=== PATIENT | female | born 1950 | race Caucasian/White ===

== ENCOUNTER 2022-12-03 08:14 | Inpatient (IN) | payer BC, MEDICARE ==
[~2022-12-03] VITALS: Ht 154.9 cm; Wt 73.0 kg
[2022-12-03 09:37] LABS: Basophils # (auto) 0.1 10 ^3/uL (0-0.2); Basophils % (auto) 0.7 % (0.0-2.0); Eosinophils # (auto) 0 10 ^3/uL (0-0.8); Hematocrit 35.9 % (36.0-46.0); Hemoglobin 12.5 g/dL (12.2-16.2); Lymphocytes # (auto) 1.2 10 ^3/uL (0.4-5.4); Lymphocytes % (auto) 10.1 % (10.0-50.0); Mean Corpuscular Hemoglobin 32.9 pg (28.0-32.0); Monocytes # (auto) 0.4 10 ^3/uL (0-1.3); Monocytes % (auto) 3.6 % (0.0-12.0); Neutrophils % (auto) 85.6 % (37.0-80.0); Nucleated Red Blood Cells % 0.2 %; Red Blood Cells 3.82 10^6/uL (4.0-5.20); Red Cell Distribution Width 13.7 % (11.8-14.3); White Blood Cell 11.7 10^3/uL (4.4-10.8)
[2022-12-03 09:38] LABS: Albumin 4.7 g/dL (3.4-5.0); Calcium 9.9 mg/dL (8.5-10.1); Potassium 4.5 mmol/L (3.5-5.1)
[2022-12-03 09:43] LABS: BUN/Creatinine Ratio 21.3; Bilirubin, Total 0.4 mg/dL (0.2-1.0); Total Protein 8.2 g/dL (6.4-8.2)
[2022-12-03] MEDS ORDERED: ONDANSETRON HCL 4 MG/2 ML VIAL IV ONE (11:45)
[2022-12-03] MEDS ORDERED: MORPHINE SULFATE 4 MG/ML SYR/VIAL IV ONE (11:45)
[2022-12-03] MEDS ORDERED: IOHEXOL 350 MG/ML 100ML IJ ONE (12:11)
[2022-12-03] MEDS ORDERED: PANTOPRAZOLE 40 MG/10 ML VIAL INJ IV ONE (13:15)
[2022-12-03] MEDS ORDERED: cefTRIAXone 1GM/50ML D5W 50 ML IV ONE (13:15)
[2022-12-03] MEDS ORDERED: ACETAMINOPHEN 325 MG TAB PO PRN (13:15)
[2022-12-03 13:38] LABS: Cholesterol 295 mg/dL (< 200); Triglycerides 212 mg/dL (< 150)
[2022-12-03 13:41] LABS: HDL Cholesterol 43 mg/dL (40-59); LDL Cholesterol 208 mg/dL (< 100)
[2022-12-03] MEDS: SODIUM CHLORIDE 0.9% 1,000 ML IV SCH (13:45)
[2022-12-03] MEDS: HYDROcodone-ACET 5/325MG TAB PO PRN (14:41)
[2022-12-03 15:53] LABS: Urine Bacteria FEW /hpf (None Seen); Urine Blood 1+ /uL (Negative); Urine Mucus FEW (None Seen); Urine WBC 3 /hpf (0 - 5)
[2022-12-03 15:54] LABS: Urine Specific Gravity > 1.050 (1.001-1.035)
[2022-12-03] MEDS ORDERED: hydrALAZINE HCL 20 MG/ML VL IV PRN (16:15)
[2022-12-03] MEDS ORDERED: HYDROmorphone HCL 2 MG/ML VL/or syr IV PRN (20:30)
[2022-12-03] MEDS ORDERED: HEPARIN SODIUM (PORCINE) 5000 UNITS/ML 1ML VIAL SC SCH (22:00)
[2022-12-03] MEDS ORDERED: MAGNESIUM SULFATE 1GM/100ML 100 ML IV ONE (22:00)
[2022-12-03] MEDS ORDERED: HEPARIN DRIP/D5W 100UNITS/ML 250 ML IV SCH (23:30)
[2022-12-03] MEDS ORDERED: ASPirin 325 MG TAB PO ONE (23:30)
[2022-12-03] MEDS ORDERED: HEPARIN SODIUM (PORCINE) 5000 UNITS/ML 1ML VIAL IV ONE (23:30)
[2022-12-04] VITALS (10 sets, daily range): BP systolic 116–152; BP diastolic 45–81
[2022-12-04 00:13] LABS: INR 0.99 (0.9-1.15); Partial Thromboplastin Time 25.9 sec (24.6-33.4)
[2022-12-04] MEDS: HYDROcodone-ACET 5/325MG TAB PO PRN ×4 (04:02→19:51)
[2022-12-04 05:23] LABS: Basophils # (auto) 0.1 10 ^3/uL (0-0.2); Basophils % (auto) 0.8 % (0.0-2.0); Eosinophils # (auto) 0 10 ^3/uL (0-0.8); Eosinophils % (auto) 0.3 % (0.0-7.0); Hematocrit 30.4 % (36.0-46.0); Hemoglobin 10.4 g/dL (12.2-16.2); Lymphocytes # (auto) 1.6 10 ^3/uL (0.4-5.4); Lymphocytes % (auto) 19.4 % (10.0-50.0); Mean Corpuscular Hgb Conc. 34.1 g/dL (32.0-36.0); Mean Corpuscular Volume 96.9 fL (80.0-100.0); Monocytes # (auto) 0.7 10 ^3/uL (0-1.3); Monocytes % (auto) 8.2 % (0.0-12.0); Neutrophils # (auto) 5.7 10 ^3/uL (1.6-8.6); Neutrophils % (auto) 71.3 % (37.0-80.0); Red Blood Cells 3.14 10^6/uL (4.0-5.20); Red Cell Distribution Width 13.8 % (11.8-14.3)
[2022-12-04 05:42] LABS: Albumin 3.6 g/dL (3.4-5.0); Calcium 8.6 mg/dL (8.5-10.1); Potassium 3.8 mmol/L (3.5-5.1)
[2022-12-04 05:46] LABS: BUN/Creatinine Ratio 19.1; Bilirubin, Total 0.5 mg/dL (0.2-1.0); INR 1.03 (0.9-1.15)
[2022-12-04 05:49] LABS: Partial Thromboplastin Time 87.7 sec (24.6-33.4)
[2022-12-04] MEDS: SODIUM CHLORIDE 0.9% 1,000 ML IV SCH (07:52)
[2022-12-04] MEDS ORDERED: cefTRIAXone 1GM/50ML D5W 50 ML IV SCH (09:00)
[2022-12-04] MEDS ORDERED: PANTOPRAZOLE 40 MG/10 ML VIAL INJ IV SCH (10:00)
[2022-12-04] MEDS: METOPROLOL SUCCINATE XL 50 MG TAB PO SCH (10:28)
[2022-12-04] MEDS: CLOPIDOGREL BISULFATE 75 MG TAB PO SCH (10:28)
[2022-12-04] MEDS: ASPirin 81 mg TAB PO SCH (10:28)
[2022-12-04 13:55] LABS: INR 1.03 (0.9-1.15); Partial Thromboplastin Time 57.3 sec (24.6-33.4)
[2022-12-04] MEDS ORDERED: HEPARIN SODIUM (PORCINE) 5000 UNITS/ML 1ML VIAL ONE (16:31)
[2022-12-04] MEDS ORDERED: ANGIOMAX 250 MG VIAL IV ONE (16:31)
[2022-12-04] MEDS ORDERED: LIDOCAINE 2%HCL (LOCAL ANESTH.) INJ 20ML MDV ONE (16:32)
[2022-12-04] MEDS ORDERED: fentaNYL CITRATE 100 MCG/2 ML VL ONE (16:32)
[2022-12-04] MEDS ORDERED: SODIUM CHL 0.9% 0 ML ONE (16:32)
[2022-12-04] MEDS ORDERED: MIDAZOLAM HCL 2MG/2ML 2ml VIAL (1mg/ml) ONE (16:32)
[2022-12-04] MEDS ORDERED: VERAPAMIL 2.5MG/ML INJ 2ML VIAL IV ONE (16:32)
[2022-12-04] MEDS ORDERED: LISI-716 PO (19:49)
[2022-12-04 20:20] LABS: INR 1.01 (0.9-1.15); Partial Thromboplastin Time 51.8 sec (24.6-33.4)
[2022-12-04] MEDS ORDERED: HEPARIN DRIP/D5W 100UNITS/ML 250 ML IV SCH (21:00)
[2022-12-04] MEDS: ATORVASTATIN 20 MG TAB PO SCH (21:34)
[2022-12-05] MEDS: HYDROcodone-ACET 5/325MG TAB PO PRN ×4 (01:06→21:44)
[2022-12-05 03:12] LABS: INR 0.98 (0.9-1.15); Partial Thromboplastin Time 47.8 sec (24.6-33.4)
[2022-12-05 05:00] VITALS: BP 137/65
[2022-12-05 06:48] LABS: Basophils # (auto) 0.1 10 ^3/uL (0-0.2); Eosinophils # (auto) 0.1 10 ^3/uL (0-0.8); Eosinophils % (auto) 0.9 % (0.0-7.0); Hematocrit 29.1 % (36.0-46.0); Hemoglobin 10.3 g/dL (12.2-16.2); Lymphocytes # (auto) 1.8 10 ^3/uL (0.4-5.4); Lymphocytes % (auto) 23.7 % (10.0-50.0); Mean Corpuscular Hemoglobin 33.9 pg (28.0-32.0); Mean Corpuscular Hgb Conc. 35.4 g/dL (32.0-36.0); Mean Corpuscular Volume 95.7 fL (80.0-100.0); Monocytes # (auto) 0.7 10 ^3/uL (0-1.3); Monocytes % (auto) 8.8 % (0.0-12.0); Neutrophils # (auto) 4.9 10 ^3/uL (1.6-8.6); Neutrophils % (auto) 65.6 % (37.0-80.0); Nucleated Red Blood Cells % 0.1 %; Red Blood Cells 3.04 10^6/uL (4.0-5.20); Red Cell Distribution Width 13.3 % (11.8-14.3); White Blood Cell 7.4 10^3/uL (4.4-10.8)
[2022-12-05 07:28] LABS: Potassium 4.1 mmol/L (3.5-5.1)
[2022-12-05 07:36] LABS: Albumin 3.6 g/dL (3.4-5.0); BUN/Creatinine Ratio 19.6; Bilirubin, Total 0.4 mg/dL (0.2-1.0); Total Protein 6.5 g/dL (6.4-8.2)
[2022-12-05 09:00] VITALS: BP 117/49
[2022-12-05] MEDS ORDERED: NITROGLYCERIN 0.4 MG SL TAB SL PRN (09:00)
[2022-12-05] MEDS ORDERED: MORPHINE SULFATE INJ 2 MG/ml SYRG IV PRN (09:00)
[2022-12-05] MEDS: ASPirin 81 mg TAB PO SCH (09:35)
[2022-12-05] MEDS: METOPROLOL SUCCINATE XL 50 MG TAB PO SCH (09:37)
[2022-12-05 09:42] LABS: Partial Thromboplastin Time 53.5 sec (24.6-33.4)
[2022-12-05] MEDS: CLOPIDOGREL BISULFATE 75 MG TAB PO SCH (10:00)
[2022-12-05 13:00] VITALS: BP_SYST 132; BP_SYST 143; BP_DIAS 61
[2022-12-05 16:01] LABS: INR 0.99 (0.9-1.15); Partial Thromboplastin Time 45.5 sec (24.6-33.4)
[2022-12-05 17:00] VITALS: BP 153/62
[2022-12-05] MEDS ORDERED: HEPARIN DRIP/D5W 100UNITS/ML 250 ML IV SCH (17:30)
[2022-12-05] MEDS: ATORVASTATIN 20 MG TAB PO SCH (21:42)
[2022-12-05 22:00] VITALS: BP 160/75
[2022-12-06 00:38] LABS: INR 1.03 (0.9-1.15); Partial Thromboplastin Time 68.1 sec (24.6-33.4)
[2022-12-06 05:00] VITALS: BP 163/75
[2022-12-06 06:06] LABS: Basophils # (auto) 0.1 10 ^3/uL (0-0.2); Basophils % (auto) 0.6 % (0.0-2.0); Eosinophils # (auto) 0.1 10 ^3/uL (0-0.8); Eosinophils % (auto) 1.7 % (0.0-7.0); Hematocrit 28.6 % (36.0-46.0); Hemoglobin 10.3 g/dL (12.2-16.2); Lymphocytes % (auto) 25.6 % (10.0-50.0); Mean Corpuscular Hemoglobin 33.5 pg (28.0-32.0); Mean Corpuscular Hgb Conc. 35.8 g/dL (32.0-36.0); Mean Corpuscular Volume 93.5 fL (80.0-100.0); Monocytes # (auto) 0.6 10 ^3/uL (0-1.3); Monocytes % (auto) 7.9 % (0.0-12.0); Neutrophils # (auto) 5.1 10 ^3/uL (1.6-8.6); Neutrophils % (auto) 64.2 % (37.0-80.0); Red Blood Cells 3.06 10^6/uL (4.0-5.20); Red Cell Distribution Width 13.7 % (11.8-14.3); White Blood Cell 7.9 10^3/uL (4.4-10.8)
[2022-12-06 06:28] LABS: Albumin 3.4 g/dL (3.4-5.0); Calcium 8.8 mg/dL (8.5-10.1); Potassium 3.5 mmol/L (3.5-5.1)
[2022-12-06 06:30] LABS: BUN/Creatinine Ratio 21.4; Bilirubin, Total 0.4 mg/dL (0.2-1.0)
[2022-12-06 07:02] LABS: INR 1.02 (0.9-1.15); Partial Thromboplastin Time 61.8 sec (24.6-33.4)
[2022-12-06] MEDS: CLOPIDOGREL BISULFATE 75 MG TAB PO SCH (08:17)
[2022-12-06] MEDS: ASPirin 81 mg TAB PO SCH (08:17)
[2022-12-06] MEDS: METOPROLOL SUCCINATE XL 50 MG TAB PO SCH ×2 (08:18→10:30)
[2022-12-06] MEDS: HYDROcodone-ACET 5/325MG TAB PO PRN (08:18)
[2022-12-06 09:05] VITALS: BP 166/70
[2022-12-06] MEDS ORDERED: LOSARTAN POTASSIUM 25 MG TAB PO ONE (10:30)
[2022-12-06] MEDS ORDERED: SENNA 8.6 MG TAB PO PRN (10:30)
[2022-12-06] MEDS ORDERED: POLYETHYLENE GLYCOL 17 GM PWDR PO PRN (10:30)
[2022-12-06] MEDS ORDERED: ENOXAPARIN SOD 80 MG/0.8ML SYRINGE SC ONE (11:30)
[2022-12-06 13:00] VITALS: BP 138/47
[2022-12-06] MEDS: HYDROmorphone HCL 2 MG TAB PO PRN ×2 (15:45→22:01)
[2022-12-06 17:00] VITALS: BP 119/68
[2022-12-06] MEDS: ACETAMINOPHEN 500 MG TAB PO SCH ×2 (19:45→22:00)
[2022-12-06 20:00] VITALS: BP 163/90
[2022-12-06] MEDS: SENNA 8.6 MG TAB PO SCH (21:53)
[2022-12-06] MEDS: ATORVASTATIN 20 MG TAB PO SCH (21:53)
[2022-12-06] MEDS: ENOXAPARIN SOD 80 MG/0.8ML SYRINGE SC SCH (21:54)
[2022-12-06 22:00] VITALS: BP 163/90
[2022-12-07] VITALS (7 sets, daily range): BP systolic 127–147; BP diastolic 38–58
[2022-12-07] MEDS: HYDROmorphone HCL 2 MG TAB PO PRN ×4 (03:47→19:58)
[2022-12-07] MEDS: ACETAMINOPHEN 500 MG TAB PO SCH ×3 (06:00→21:51)
[2022-12-07 06:26] LABS: Basophils # (auto) 0.1 10 ^3/uL (0-0.2); Basophils % (auto) 0.5 % (0.0-2.0); Eosinophils # (auto) 0.1 10 ^3/uL (0-0.8); Eosinophils % (auto) 0.7 % (0.0-7.0); Hematocrit 27.6 % (36.0-46.0); Hemoglobin 9.8 g/dL (12.2-16.2); Lymphocytes # (auto) 1.8 10 ^3/uL (0.4-5.4); Mean Corpuscular Hemoglobin 33.4 pg (28.0-32.0); Mean Corpuscular Hgb Conc. 35.5 g/dL (32.0-36.0); Monocytes # (auto) 0.8 10 ^3/uL (0-1.3); Monocytes % (auto) 8.1 % (0.0-12.0); Neutrophils # (auto) 7.7 10 ^3/uL (1.6-8.6); Neutrophils % (auto) 73.7 % (37.0-80.0); Red Blood Cells 2.94 10^6/uL (4.0-5.20); Red Cell Distribution Width 13.6 % (11.8-14.3); White Blood Cell 10.4 10^3/uL (4.4-10.8)
[2022-12-07 07:23] LABS: Potassium 3.5 mmol/L (3.5-5.1)
[2022-12-07 07:39] LABS: Albumin 3.3 g/dL (3.4-5.0); Bilirubin, Total 0.6 mg/dL (0.2-1.0); Calcium 9.1 mg/dL (8.5-10.1); Total Protein 6.9 g/dL (6.4-8.2)
[2022-12-07] MEDS: LOSARTAN POTASSIUM 25 MG TAB PO SCH (10:21)
[2022-12-07] MEDS: METOPROLOL SUCCINATE XL 50 MG TAB PO SCH ×2 (10:21→11:44)
[2022-12-07] MEDS: ENOXAPARIN SOD 80 MG/0.8ML SYRINGE SC SCH ×2 (10:22→21:51)
[2022-12-07] MEDS: POLYETHYLENE GLYCOL 17 GM PWDR PO SCH (10:22)
[2022-12-07] MEDS: ASPirin 81 mg TAB PO SCH (10:22)
[2022-12-07] MEDS ORDERED: METOPROLOL TARTRATE 50 MG TAB PO ONE (10:45)
[2022-12-07] MEDS ORDERED: NITROGLYCERIN 0.4MG/DOSE SPRAY 4.9GM TL PRN (10:45)
[2022-12-07] MEDS ORDERED: CHOLECALCIFEROL (VITD3) 1,000UNIT=25mCg TAB PO ONE (10:45)
[2022-12-07 11:53] LABS: INR 1.03 (0.9-1.15); Partial Thromboplastin Time 35.6 sec (24.6-33.4)
[2022-12-07] MEDS: SENNA 8.6 MG TAB PO SCH (21:51)
[2022-12-07] MEDS: ATORVASTATIN 20 MG TAB PO SCH (21:51)
[2022-12-08] VITALS (8 sets, daily range): BP systolic 101–168; BP diastolic 31–52
[2022-12-08] MEDS: HYDROmorphone HCL 2 MG TAB PO PRN ×4 (02:27→23:41)
[2022-12-08] MEDS: ACETAMINOPHEN 500 MG TAB PO SCH ×3 (05:03→22:13)
[2022-12-08 06:01] LABS: Basophils # (auto) 0.1 10 ^3/uL (0-0.2); Basophils % (auto) 0.6 % (0.0-2.0); Eosinophils # (auto) 0 10 ^3/uL (0-0.8); Eosinophils % (auto) 0.4 % (0.0-7.0); Hematocrit 23.4 % (36.0-46.0); Hemoglobin 8.2 g/dL (12.2-16.2); Lymphocytes # (auto) 1.8 10 ^3/uL (0.4-5.4); Lymphocytes % (auto) 14.1 % (10.0-50.0); Mean Corpuscular Hemoglobin 33.2 pg (28.0-32.0); Mean Corpuscular Hgb Conc. 35.1 g/dL (32.0-36.0); Mean Corpuscular Volume 94.8 fL (80.0-100.0); Monocytes # (auto) 1.1 10 ^3/uL (0-1.3); Monocytes % (auto) 8.6 % (0.0-12.0); Neutrophils # (auto) 9.5 10 ^3/uL (1.6-8.6); Neutrophils % (auto) 76.3 % (37.0-80.0); Nucleated Red Blood Cells % 0.1 %; Red Blood Cells 2.47 10^6/uL (4.0-5.20); Red Cell Distribution Width 13.5 % (11.8-14.3); White Blood Cell 12.5 10^3/uL (4.4-10.8)
[2022-12-08 06:39] LABS: Albumin 3.3 g/dL (3.4-5.0); Bilirubin, Total 0.5 mg/dL (0.2-1.0); Calcium 8.9 mg/dL (8.5-10.1); Potassium 3.3 mmol/L (3.5-5.1); Total Protein 6.8 g/dL (6.4-8.2)
[2022-12-08] MEDS: POLYETHYLENE GLYCOL 17 GM PWDR PO SCH (10:00)
[2022-12-08] MEDS: ASPirin 81 mg TAB PO SCH (10:11)
[2022-12-08] MEDS: ENOXAPARIN SOD 80 MG/0.8ML SYRINGE SC SCH (10:12)
[2022-12-08] MEDS: CHOLECALCIFEROL (VITD3) 1,000UNIT=25mCg TAB PO SCH (10:12)
[2022-12-08] MEDS: LOSARTAN POTASSIUM 25 MG TAB PO SCH (10:12)
[2022-12-08] MEDS: METOPROLOL SUCCINATE XL 50 MG TAB PO SCH (10:12)
[2022-12-08] MEDS ORDERED: OMNIPAQUE ORAL SOLN 500ml 12mg/ml PO ONE (14:27)
[2022-12-08] MEDS ORDERED: PANTOPRAZOLE 40 MG TAB PO ONE (14:30)
[2022-12-08] MEDS ORDERED: IOHEXOL 300 MG/ML 100ML BOTTLE IJ ONE (15:29)
[2022-12-08] MEDS ORDERED: POTASSIUM EFFERVESENT TAB 25 MEQ PO ONE (16:30)
[2022-12-08 17:11] LABS: Basophils % (auto) 0.3 % (0.0-2.0); Eosinophils # (auto) 0 10 ^3/uL (0-0.8); Hemoglobin 7.4 g/dL (12.2-16.2); Lymphocytes # (auto) 1.4 10 ^3/uL (0.4-5.4); Monocytes % (auto) 8.3 % (0.0-12.0); Neutrophils # (auto) 12.4 10 ^3/uL (1.6-8.6); Neutrophils % (auto) 82.2 % (37.0-80.0); Red Blood Cells 2.21 10^6/uL (4.0-5.20); White Blood Cell 15.1 10^3/uL (4.4-10.8)
[2022-12-08 17:12] LABS: Basophils # (auto) 0 10 ^3/uL (0-0.2); Eosinophils % (auto) 0.2 % (0.0-7.0); Mean Corpuscular Hemoglobin 33.4 pg (28.0-32.0); Mean Corpuscular Hgb Conc. 35.1 g/dL (32.0-36.0); Mean Corpuscular Volume 95.2 fL (80.0-100.0); Monocytes # (auto) 1.2 10 ^3/uL (0-1.3); Red Cell Distribution Width 13.5 % (11.8-14.3)
[2022-12-08 18:53] LABS: Basophils # (auto) 0.1 10 ^3/uL (0-0.2); Basophils % (auto) 0.5 % (0.0-2.0); Eosinophils # (auto) 0 10 ^3/uL (0-0.8); Eosinophils % (auto) 0.2 % (0.0-7.0); Hematocrit 21.4 % (36.0-46.0); Hemoglobin 7.3 g/dL (12.2-16.2); Lymphocytes # (auto) 1.8 10 ^3/uL (0.4-5.4); Lymphocytes % (auto) 11.7 % (10.0-50.0); Mean Corpuscular Hemoglobin 32.6 pg (28.0-32.0); Mean Corpuscular Hgb Conc. 34.3 g/dL (32.0-36.0); Monocytes # (auto) 1.1 10 ^3/uL (0-1.3); Monocytes % (auto) 7.1 % (0.0-12.0); Neutrophils # (auto) 12.3 10 ^3/uL (1.6-8.6); Neutrophils % (auto) 80.5 % (37.0-80.0); Nucleated Red Blood Cells % 0.1 %; Red Blood Cells 2.25 10^6/uL (4.0-5.20); Red Cell Distribution Width 13.5 % (11.8-14.3); White Blood Cell 15.2 10^3/uL (4.4-10.8)
[2022-12-08] MEDS: ATORVASTATIN 20 MG TAB PO SCH (22:13)
[2022-12-08] MEDS: SENNA 8.6 MG TAB PO SCH (22:13)
[2022-12-09] VITALS (10 sets, daily range): BP systolic 101–139; BP diastolic 30–64
[2022-12-09] MEDS: HYDROmorphone HCL 2 MG TAB PO PRN (03:39)
[2022-12-09] MEDS: ACETAMINOPHEN 500 MG TAB PO SCH ×2 (05:29→14:39)
[2022-12-09 06:35] LABS: Basophils # (auto) 0.1 10 ^3/uL (0-0.2); Basophils % (auto) 0.5 % (0.0-2.0); Eosinophils # (auto) 0.1 10 ^3/uL (0-0.8); Eosinophils % (auto) 0.5 % (0.0-7.0); Hematocrit 24.5 % (36.0-46.0); Hemoglobin 8.7 g/dL (12.2-16.2); Lymphocytes # (auto) 1.4 10 ^3/uL (0.4-5.4); Lymphocytes % (auto) 11.6 % (10.0-50.0); Mean Corpuscular Hemoglobin 32.8 pg (28.0-32.0); Mean Corpuscular Hgb Conc. 35.4 g/dL (32.0-36.0); Mean Corpuscular Volume 92.7 fL (80.0-100.0); Monocytes # (auto) 1.2 10 ^3/uL (0-1.3); Monocytes % (auto) 9.3 % (0.0-12.0); Neutrophils # (auto) 9.8 10 ^3/uL (1.6-8.6); Neutrophils % (auto) 78.1 % (37.0-80.0); Red Blood Cells 2.65 10^6/uL (4.0-5.20); Red Cell Distribution Width 14.3 % (11.8-14.3); White Blood Cell 12.5 10^3/uL (4.4-10.8)
[2022-12-09 07:11] LABS: Albumin 3.2 g/dL (3.4-5.0); Bilirubin, Total 0.8 mg/dL (0.2-1.0); Calcium 9.2 mg/dL (8.5-10.1); Potassium 4.2 mmol/L (3.5-5.1); Total Protein 7.2 g/dL (6.4-8.2)
[2022-12-09] MEDS: LOSARTAN POTASSIUM 25 MG TAB PO SCH (09:26)
[2022-12-09] MEDS: POLYETHYLENE GLYCOL 17 GM PWDR PO SCH (09:26)
[2022-12-09] MEDS: PANTOPRAZOLE 40 MG TAB PO SCH (09:27)
[2022-12-09] MEDS: METOPROLOL SUCCINATE XL 50 MG TAB PO SCH (09:27)
[2022-12-09] MEDS: CHOLECALCIFEROL (VITD3) 1,000UNIT=25mCg TAB PO SCH (09:27)
[2022-12-09 15:02] LABS: Basophils # (auto) 0.1 10 ^3/uL (0-0.2); Basophils % (auto) 0.6 % (0.0-2.0); Eosinophils # (auto) 0.1 10 ^3/uL (0-0.8); Eosinophils % (auto) 0.7 % (0.0-7.0); Hematocrit 25.3 % (36.0-46.0); Hemoglobin 8.6 g/dL (12.2-16.2); Lymphocytes # (auto) 1.7 10 ^3/uL (0.4-5.4); Lymphocytes % (auto) 13.6 % (10.0-50.0); Mean Corpuscular Hemoglobin 31.8 pg (28.0-32.0); Mean Corpuscular Hgb Conc. 34.1 g/dL (32.0-36.0); Mean Corpuscular Volume 93.3 fL (80.0-100.0); Monocytes # (auto) 0.9 10 ^3/uL (0-1.3); Monocytes % (auto) 7.2 % (0.0-12.0); Neutrophils # (auto) 9.9 10 ^3/uL (1.6-8.6); Neutrophils % (auto) 77.9 % (37.0-80.0); Red Blood Cells 2.71 10^6/uL (4.0-5.20); Red Cell Distribution Width 14.3 % (11.8-14.3); White Blood Cell 12.6 10^3/uL (4.4-10.8)
[2022-12-09] MEDS ORDERED: HYDROmorphone HCL 2 MG/ML VL/or syr IV ONE (18:30)
[2022-12-09 18:38] LABS: Basophils # (auto) 0 10 ^3/uL (0-0.2); Basophils % (auto) 0.4 % (0.0-2.0); Eosinophils # (auto) 0.1 10 ^3/uL (0-0.8); Hematocrit 23.7 % (36.0-46.0); Hemoglobin 8.1 g/dL (12.2-16.2); Lymphocytes # (auto) 1.6 10 ^3/uL (0.4-5.4); Lymphocytes % (auto) 13.3 % (10.0-50.0); Mean Corpuscular Hemoglobin 31.9 pg (28.0-32.0); Mean Corpuscular Volume 93.7 fL (80.0-100.0); Monocytes # (auto) 1.1 10 ^3/uL (0-1.3); Monocytes % (auto) 8.9 % (0.0-12.0); Neutrophils # (auto) 9.1 10 ^3/uL (1.6-8.6); Neutrophils % (auto) 76.4 % (37.0-80.0); Nucleated Red Blood Cells % 0.1 %; Red Blood Cells 2.53 10^6/uL (4.0-5.20); Red Cell Distribution Width 14.5 % (11.8-14.3); White Blood Cell 11.9 10^3/uL (4.4-10.8)
[2022-12-09] MEDS: SENNA 8.6 MG TAB PO SCH (21:49)
[2022-12-09] MEDS: ATORVASTATIN 20 MG TAB PO SCH (21:49)
[2022-12-09] MEDS: OXYCODONE W/ ACETAMINOPHEN 5/325MG TABLET PO PRN (21:50)
[2022-12-10] MEDS: OXYCODONE W/ ACETAMINOPHEN 5/325MG TABLET PO PRN ×3 (02:20→22:39)
[2022-12-10 05:04] VITALS: BP 139/57
[2022-12-10 05:50] LABS: Basophils # (auto) 0.1 10 ^3/uL (0-0.2); Eosinophils # (auto) 0.2 10 ^3/uL (0-0.8); Hemoglobin 8.3 g/dL (12.2-16.2); Monocytes # (auto) 0.8 10 ^3/uL (0-1.3)
[2022-12-10 05:52] LABS: Basophils % (auto) 0.5 % (0.0-2.0); Eosinophils % (auto) 2.1 % (0.0-7.0); Lymphocytes # (auto) 1.6 10 ^3/uL (0.4-5.4); Lymphocytes % (auto) 17.2 % (10.0-50.0); Mean Corpuscular Hemoglobin 32.5 pg (28.0-32.0); Mean Corpuscular Hgb Conc. 34.8 g/dL (32.0-36.0); Mean Corpuscular Volume 93.4 fL (80.0-100.0); Monocytes % (auto) 8.4 % (0.0-12.0); Neutrophils # (auto) 6.7 10 ^3/uL (1.6-8.6); Neutrophils % (auto) 71.8 % (37.0-80.0); Nucleated Red Blood Cells % 0.1 %; Red Blood Cells 2.56 10^6/uL (4.0-5.20); Red Cell Distribution Width 14.4 % (11.8-14.3); White Blood Cell 9.4 10^3/uL (4.4-10.8)
[2022-12-10 06:03] LABS: Albumin 2.7 g/dL (3.4-5.0); Calcium 8.6 mg/dL (8.5-10.1)
[2022-12-10 06:06] LABS: BUN/Creatinine Ratio 26.4; Bilirubin, Total 0.7 mg/dL (0.2-1.0); Total Protein 6.7 g/dL (6.4-8.2)
[2022-12-10 09:00] VITALS: BP 113/51
[2022-12-10] MEDS: POLYETHYLENE GLYCOL 17 GM PWDR PO SCH (09:11)
[2022-12-10] MEDS: LOSARTAN POTASSIUM 25 MG TAB PO SCH (09:12)
[2022-12-10] MEDS: METOPROLOL SUCCINATE XL 50 MG TAB PO SCH (09:12)
[2022-12-10] MEDS: PANTOPRAZOLE 40 MG TAB PO SCH (09:12)
[2022-12-10] MEDS: CHOLECALCIFEROL (VITD3) 1,000UNIT=25mCg TAB PO SCH (09:13)
[2022-12-10] MEDS ORDERED: FERROUS SULFATE 325mg EC TAB PO ONE (10:30)
[2022-12-10] MEDS ORDERED: ACETAMINOPHEN 325 MG TAB PO PRN (10:30)
[2022-12-10 13:00] VITALS: BP 133/50
[2022-12-10] MEDS ORDERED: ACETAMINOPHEN 500 MG TAB PO PRN (13:45)
[2022-12-10 17:00] VITALS: BP 98/43
[2022-12-10] MEDS: FERROUS SULFATE 325mg EC TAB PO SCH (18:54)
[2022-12-10 22:00] VITALS: BP 115/57
[2022-12-10] MEDS: SENNA 8.6 MG TAB PO SCH (22:00)
[2022-12-10] MEDS: ATORVASTATIN 20 MG TAB PO SCH (22:39)
[2022-12-11 05:00] VITALS: BP 142/52
[2022-12-11 05:57] LABS: Basophils # (auto) 0 10 ^3/uL (0-0.2); Eosinophils # (auto) 0.1 10 ^3/uL (0-0.8); Monocytes # (auto) 0.5 10 ^3/uL (0-1.3); Neutrophils # (auto) 4.2 10 ^3/uL (1.6-8.6); Nucleated Red Blood Cells % 0.1 %
[2022-12-11 06:00] LABS: Basophils % (auto) 0.4 % (0.0-2.0); Eosinophils % (auto) 2.1 % (0.0-7.0); Hemoglobin 8.5 g/dL (12.2-16.2); Lymphocytes # (auto) 1.2 10 ^3/uL (0.4-5.4); Lymphocytes % (auto) 20.4 % (10.0-50.0); Mean Corpuscular Hemoglobin 33.2 pg (28.0-32.0); Mean Corpuscular Hgb Conc. 35.4 g/dL (32.0-36.0); Mean Corpuscular Volume 93.7 fL (80.0-100.0); Neutrophils % (auto) 69.1 % (37.0-80.0); Red Blood Cells 2.56 10^6/uL (4.0-5.20); Red Cell Distribution Width 14.3 % (11.8-14.3)
[2022-12-11 06:30] LABS: Calcium 9.1 mg/dL (8.5-10.1); Potassium 3.8 mmol/L (3.5-5.1)
[2022-12-11 06:33] LABS: Albumin 2.6 g/dL (3.4-5.0)
[2022-12-11 06:42] LABS: Bilirubin, Total 1.6 mg/dL (0.2-1.0)
[2022-12-11 08:59] VITALS: BP 138/55
[2022-12-11] MEDS: FERROUS SULFATE 325mg EC TAB PO SCH ×2 (09:00→17:37)
[2022-12-11] MEDS: POLYETHYLENE GLYCOL 17 GM PWDR PO SCH (09:53)
[2022-12-11] MEDS: LOSARTAN POTASSIUM 25 MG TAB PO SCH (09:54)
[2022-12-11] MEDS: CHOLECALCIFEROL (VITD3) 1,000UNIT=25mCg TAB PO SCH (09:54)
[2022-12-11] MEDS: PANTOPRAZOLE 40 MG TAB PO SCH (09:54)
[2022-12-11] MEDS: METOPROLOL SUCCINATE XL 50 MG TAB PO SCH (09:55)
[2022-12-11] MEDS ORDERED: OXYCODONE W/ ACETAMINOPHEN 5/325MG TABLET PO PRN (10:15)
[2022-12-11 12:34] VITALS: BP 112/34
[2022-12-11 16:34] VITALS: BP 115/44
[2022-12-11] MEDS: SENNA 8.6 MG TAB PO SCH (21:07)
[2022-12-11 22:00] VITALS: BP 104/53
[2022-12-11] MEDS: traMADol HCL 50 MG TAB PO PRN (22:02)
[2022-12-12] VITALS (8 sets, daily range): BP systolic 125–135; BP diastolic 53–65
[2022-12-12] MEDS: traMADol HCL 50 MG TAB PO PRN ×3 (05:35→17:52)
[2022-12-12 06:01] LABS: Albumin 2.7 g/dL (3.4-5.0); BUN/Creatinine Ratio 21.5; Calcium 8.9 mg/dL (8.5-10.1); Potassium 4.1 mmol/L (3.5-5.1)
[2022-12-12 06:04] LABS: Bilirubin, Total 0.8 mg/dL (0.2-1.0)
[2022-12-12] MEDS: METOPROLOL SUCCINATE XL 50 MG TAB PO SCH (09:52)
[2022-12-12] MEDS: CHOLECALCIFEROL (VITD3) 1,000UNIT=25mCg TAB PO SCH (09:53)
[2022-12-12] MEDS: LOSARTAN POTASSIUM 25 MG TAB PO SCH (09:54)
[2022-12-12] MEDS: PANTOPRAZOLE 40 MG TAB PO SCH (09:54)
[2022-12-12] MEDS: FERROUS SULFATE 325mg EC TAB PO SCH ×2 (09:54→17:52)
[2022-12-12] MEDS: POLYETHYLENE GLYCOL 17 GM PWDR PO SCH (09:55)
[2022-12-12] MEDS ORDERED: ASPirin 81 mg TAB PO ONE (11:30)
[2022-12-12] MEDS: SENNA 8.6 MG TAB PO SCH (21:57)
[2022-12-13] MEDS ORDERED: ASPirin 81 mg TAB PO SCH (10:00)
== END 2022-12-12 23:40 | disposition short-term general hospital (02) | DRG 562 ==
LOC: ER 08:14 → OVERFLOW 13:10 → TELE 22:03 → TELE-CENTR 12-04 18:56
PROVIDERS: ADMIT Nurse Practitioner Family; ATTEND Internal Medicine
PROC: 4A023N7 Measurement of Cardiac Sampling and Pressure, Left Heart, Percutaneous Approach (ICD-10-PCS; principal; 2022-12-04)
PROC: B2111ZZ Fluoroscopy of Multiple Coronary Arteries using Low Osmolar Contrast (ICD-10-PCS; 2022-12-04)
PROC: B2151ZZ Fluoroscopy of Left Heart using Low Osmolar Contrast (ICD-10-PCS; 2022-12-04)
PROC: 30233N1 Transfusion of Nonautologous Red Blood Cells into Peripheral Vein, Percutaneous Approach (ICD-10-PCS; 2022-12-08)
DX: S42.202A Unspecified fracture of upper end of left humerus, initial encounter for closed fracture (principal); I21.4 Non-ST elevation (NSTEMI) myocardial infarction; I47.20 Ventricular tachycardia, unspecified; R65.10 Systemic inflammatory response syndrome (SIRS) of non-infectious origin without acute organ dysfunction; I25.10 Atherosclerotic heart disease of native coronary artery without angina pectoris; E66.01 Morbid (severe) obesity due to excess calories; E78.5 Hyperlipidemia, unspecified; I10 Essential (primary) hypertension; R73.03 Prediabetes; D72.829 Elevated white blood cell count, unspecified; W01.0XXA Fall on same level from slipping, tripping and stumbling without subsequent striking against object, initial encounter; N94.89 Other specified conditions associated with female genital organs and menstrual cycle; K82.8 Other specified diseases of gallbladder; M81.0 Age-related osteoporosis without current pathological fracture; D64.9 Anemia, unspecified; Z20.822 Contact with and (suspected) exposure to COVID-19; Z85.828 Personal history of other malignant neoplasm of skin; Z90.710 Acquired absence of both cervix and uterus; Y93.89 Activity, other specified; Y92.89 Other specified places as the place of occurrence of the external cause; Y99.8 Other external cause status; Z82.49 Family history of ischemic heart disease and other diseases of the circulatory system; Z91.199 Patient's noncompliance with other medical treatment and regimen due to unspecified reason; Z68.31 Body mass index [BMI] 31.0-31.9, adult
CPT/HCPCS: 36415; 70450; 71046; 71275; 73030; 73070; 74177; 76705; 80053; 80061; 80329; 81001; 82306; 82962; 83036; 83735; 83880; 84443; 84484; 85025; 85379; 85610; 85730; 86850; 86900; 86901; 86920; 87040; 87426; 93005; 93306; 93458; 96365; 96375; 99152; 99153; C9113; G0378; J0696; J2250; J2405

== ENCOUNTER → 2023-05-20 | Outpatient (CLI) | payer BC, MEDICARE ==
[~2023-05-20] MED LIST: LISI10TA34 PO
[2023-05-20 13:51] LABS: Basophils # (auto) 0.1 10 ^3/uL (0-0.2); Basophils % (auto) 1.2 % (0.0-2.0); Eosinophils # (auto) 0.1 10 ^3/uL (0-0.8); Eosinophils % (auto) 1.2 % (0.0-7.0); Hematocrit 37.4 % (36.0-46.0); Hemoglobin 12.7 g/dL (12.2-16.2); Lymphocytes # (auto) 2.7 10 ^3/uL (0.4-5.4); Lymphocytes % (auto) 28.6 % (10.0-50.0); Mean Corpuscular Hemoglobin 32.3 pg (28.0-32.0); Mean Corpuscular Hgb Conc. 33.9 g/dL (32.0-36.0); Mean Corpuscular Volume 95.4 fL (80.0-100.0); Monocytes # (auto) 0.5 10 ^3/uL (0-1.3); Monocytes % (auto) 5.6 % (0.0-12.0); Neutrophils # (auto) 6.1 10 ^3/uL (1.6-8.6); Neutrophils % (auto) 63.4 % (37.0-80.0); Nucleated Red Blood Cells % 0.3 %; Red Blood Cells 3.92 10^6/uL (4.0-5.20); Red Cell Distribution Width 13.5 % (11.8-14.3); White Blood Cell 9.6 10^3/uL (4.4-10.8)
[2023-05-20 14:29] LABS: Urine Bacteria FEW /hpf (None Seen); Urine Blood 1+ /uL (Negative); Urine Clarity Clear (Clear); Urine Color Yellow (Yellow); Urine Protein, UAD Negative (Negative); Urine Specific Gravity 1.022 (1.001-1.035); Urine Urobilinogen Normal (Negative); Urine WBC 10 /hpf (0 - 5)
[2023-05-20 14:42] LABS: Albumin 4.3 g/dL (3.4-5.0); BUN/Creatinine Ratio 29.9 (10.0-20.0); Calcium 9.5 mg/dL (8.5-10.1); Potassium 4.4 mmol/L (3.5-5.1)
[2023-05-20 15:07] LABS: Bilirubin, Total 0.2 mg/dL (0.2-1.0); Total Protein 8.2 g/dL (6.4-8.2)
== END | disposition home or self-care (01) ==
LOC: LAB 13:30
DX: I10 Essential (primary) hypertension (principal); E78.5 Hyperlipidemia, unspecified
CPT/HCPCS: 36415; 80053; 80061; 81001; 83036; 84443; 85025